=== PATIENT | female | born 1990 | race Caucasian/White ===

== ENCOUNTER 2022-05-04 07:25 | Emergency (ER) | payer SELFPAY ==
[2022-05-04] MEDS ORDERED: Lidocaine 1% PF 5 ML VIAL ONE (08:40)
== END 2022-05-04 09:15 | disposition home or self-care (01) ==
LOC: ERS 07:25
DX: S01.81XA Laceration without foreign body of other part of head, initial encounter (principal); W19.XXXA Unspecified fall, initial encounter
CPT/HCPCS: 12011; 93005

== ENCOUNTER 2022-05-09 08:15 | Emergency (ER) | payer SELFPAY ==
[2022-05-09] MEDS ORDERED: Bacitracin 1 PK ONE (08:54)
== END 2022-05-09 08:54 | disposition home or self-care (01) ==
LOC: ERS 08:15
DX: S01.81XD Laceration without foreign body of other part of head, subsequent encounter (principal)